=== PATIENT | female | born 1995 | race Hispanic/Latino ===

== ENCOUNTER 2022-12-31 19:30 | Inpatient (IN) | payer BC, OTHER ==
[2022-12-31 20:25] VITALS: BMI 32.1
[2022-12-31] MEDS ORDERED: Fentanyl 100 MCG/2 ML VIAL SLOW IVP PRN (22:38)
[2022-12-31] MEDS ORDERED: Tranexamic Acid 1,000 MG/10 ML VIAL IVP PRN (22:38)
[2022-12-31] MEDS ORDERED: hydrALAZINE 20 MG/ML VIAL SLOW IVP PRN (22:38)
[2022-12-31] MEDS ORDERED: Butorphanol Tartrate 1 MG/ML VIAL SLOW IVP PRN (22:38)
[2022-12-31] MEDS ORDERED: Acetaminophen 500 MG TAB PO PRN (22:38)
[2022-12-31] MEDS ORDERED: Methylergonovine 0.2 MG/ML VIAL IM PRN (22:38)
[2022-12-31] MEDS ORDERED: Carboprost 250 MCG/ML AMP IM PRN (22:38)
[2022-12-31] MEDS ORDERED: HYDROcodone/Acetaminophen 5/325 mg Tablet PO PRN ×2 (22:38)
[2022-12-31] MEDS ORDERED: Misoprostol 200 MCG TAB PR PRN (22:38)
[2022-12-31] MEDS ORDERED: Diphenoxylate HCl/Atropine Tablet PO PRN ×2 (22:38)
[2022-12-31] MEDS ORDERED: Promethazine HCl 25 MG/ML VIAL IM PRN (22:38)
[2022-12-31] MEDS ORDERED: Ondansetron PF 4 MG/2 ML Vial IVP PRN (22:38)
[2022-12-31] MEDS ORDERED: Lidocaine 1% (PF) 30 ML VIAL SC PRN (22:38)
[2022-12-31] MEDS ORDERED: Ibuprofen 800 MG TAB PO PRN (22:38)
[2022-12-31] MEDS ORDERED: NS w/ Oxytocin 30 units 500 ML IV SCH ×3 (22:45)
[2022-12-31 22:58] LABS: Hemoglobin 11.1 g/dL (12.0-15.5); Mean Corpuscular HGB CONC 33.7 g/dL (32.0-36.0); Mean Corpuscular Hemoglobin 29.8 pg (27.0-33.0); Mean Corpuscular Volume 88.2 fl (81.6-98.3); Mean Platelet Volume 12.4 fl (7.4-10.4); Platelet Count 274 10x3/uL (150-450); RBC Distribution Width 12.9 % (11.5-14.5); Red Blood Cell (RBC) Count 3.73 10x6/uL (3.90-5.03); White Blood Cell (WBC) Count 10.6 10x3/uL (3.5-10.5)
[2022-12-31] MEDS: Misoprostol 100 MCG TAB VAG SCH (23:14)
[2022-12-31 23:25] LABS: HBSAg Index 0.13 S/CO (0-0.99); Hep B Surf Ag - L&D Non-Reactive S/CO (NonReactive)
[2022-12-31 23:27] LABS: Syphilis Antibody Nonreactive (Nonreactive); Syphilis Antibody Index 0.03 S/CO (<1.00 Non-Reactive)
[2023-01-01] MEDS ORDERED: Fentanyl 2 mcg/Bup 0.1% Cadd 100 ML ONE (07:45)
[2023-01-01] MEDS ORDERED: NS w/ Oxytocin 30 units 500 ML ONE (07:45)
[2023-01-01] MEDS: Lactated Ringer's 1,000 ML IV SCH ×2 (10:59→11:47)
[2023-01-01] MEDS ORDERED: diphenhydrAMINE 50 MG/ML VIAL IVP PRN ×2 (11:18→23:30)
[2023-01-01] MEDS ORDERED: Ondansetron PF 4 MG/2 ML Vial IVP PRN ×2 (11:18→23:30)
[2023-01-01] MEDS ORDERED: Naloxone HCl 0.4 mg/ml Vial IVP PRN ×4 (11:18→23:30)
[2023-01-01] MEDS ORDERED: Lactated Ringer's 500 ML IV PRN (11:18)
[2023-01-01] MEDS ORDERED: ePHEDrine Sulfate 50 MG/10 ML VIAL SLOW IVP PRN (11:18)
[2023-01-01] MEDS ORDERED: Moisturizing Cream (Eucerin) 113 GM JAR TOP PRN ×2 (11:18→23:30)
[2023-01-01] MEDS ORDERED: Promethazine HCl 25 MG/ML VIAL IM PRN ×2 (11:18→23:30)
[2023-01-01] MEDS ORDERED: Acetaminophen 325 MG TAB PO PRN (11:18)
[2023-01-01] MEDS ORDERED: Fentanyl 2 mcg/Bupivacaine 0.1% Cassette 100 ML EPIDURAL SCH (11:30)
[2023-01-01] MEDS ORDERED: Communication Order-Pharmacy FS SCH ×2 (11:30→23:30)
[2023-01-01] MEDS ORDERED: CEFAZOLIN 2 GM VIAL ONE (21:12)
[2023-01-01] MEDS ORDERED: Azithromycin 500 MG VIAL ONE ×3 (22:21→22:30)
[2023-01-01] MEDS ORDERED: Morphine PF 10 MG/10 ML VIAL ONE (22:31)
[2023-01-01] MEDS ORDERED: PHENYLEPHRINE-NS 100 MCG/ML 10 ML SYRINGE ONE (22:32)
[2023-01-01] MEDS ORDERED: Oxytocin 10 UNITS/ML VIAL ONE (22:32)
[2023-01-01] MEDS ORDERED: Ondansetron PF 4 MG/2 ML Vial ONE (22:32)
[2023-01-01] MEDS ORDERED: Midazolam HCl 2 mg/2 ml Vial ONE (22:56)
[2023-01-01] MEDS ORDERED: Fentanyl 100 MCG/2 ML VIAL ONE (22:56)
[2023-01-01 23:01] LABS: pH (Cord, venous) 7.363 (7.250-7.350)
[2023-01-01] MEDS ORDERED: Ketorolac Tromethamine 30 MG/ML VIAL IVP SCH (23:30)
[2023-01-01] MEDS ORDERED: Promethazine HCl 25 MG SUPP PR PRN (23:30)
[2023-01-01] MEDS ORDERED: Meperidine HCl/PF 25 MG/ML VIAL SLOW IVP PRN (23:30)
[2023-01-01] MEDS ORDERED: Fentanyl 100 MCG/2 ML VIAL SLOW IVP PRN (23:30)
[2023-01-01] MEDS ORDERED: Ketorolac Tromethamine 30 MG/ML VIAL IVP PRN (23:30)
[2023-01-01] MEDS ORDERED: Ondansetron HCl/PF 4 MG/2 ML Vial IVP PRN (23:30)
[2023-01-01] MEDS ORDERED: Naloxone HCl 0.4 mg/ml Vial IV PRN (23:30)
[2023-01-02] MEDS ORDERED: Fentanyl 100 MCG/2 ML VIAL ONE (00:07)
[2023-01-02] MEDS ORDERED: hydrALAZINE 20 MG/ML VIAL SLOW IVP PRN (01:28)
[2023-01-02] MEDS ORDERED: Bisacodyl 10 MG SUPP PR PRN (01:28)
[2023-01-02] MEDS ORDERED: Varicella virus, LIVE 0.5 ML VIAL SC ONE (01:28)
[2023-01-02] MEDS ORDERED: Preparation H Ointment 28 GM TUBE PR PRN (01:28)
[2023-01-02] MEDS ORDERED: Misoprostol 200 MCG TAB VAG PRN (01:28)
[2023-01-02] MEDS ORDERED: Boostrix 0.5 ML (Tdap) VIAL (>/=7 yrs of age) IM ONE (01:28)
[2023-01-02] MEDS ORDERED: Benzocaine-Menthol 82.5 ML CAN TOP PRN (01:28)
[2023-01-02] MEDS ORDERED: Measles/Mumps/Rubella 10 MCG/0.5 ML VIAL SC ONE (01:28)
[2023-01-02] MEDS ORDERED: Ondansetron PF 4 MG/2 ML Vial IVP PRN (01:28)
[2023-01-02] MEDS ORDERED: Promethazine HCl 25 MG/ML VIAL IM PRN (01:28)
[2023-01-02] MEDS ORDERED: Milk Of Magnesia 30 ML UDCUP PO PRN (01:28)
[2023-01-02] MEDS ORDERED: Methylergonovine 0.2 MG/ML VIAL IM PRN (01:28)
[2023-01-02] MEDS ORDERED: NS w/ Oxytocin 30 units 500 ML IV SCH (01:28)
[2023-01-02] MEDS ORDERED: diphenhydrAMINE 25 MG CAP PO PRN (01:28)
[2023-01-02] MEDS ORDERED: Lanolin Ointment 7 GM TUBE TOP PRN (01:28)
[2023-01-02] MEDS ORDERED: Docusate 100 MG CAP PO SCH (01:45)
[2023-01-02] MEDS: Lactated Ringer's 1,000 ML IV SCH (01:58)
[2023-01-02] MEDS: Misoprostol 100 MCG TAB VAG SCH (01:58)
[2023-01-02 05:43] LABS: Hemoglobin 9.7 g/dL (12.0-15.5); Mean Corpuscular HGB CONC 33.6 g/dL (32.0-36.0); Mean Corpuscular Hemoglobin 29.8 pg (27.0-33.0); Mean Corpuscular Volume 88.9 fl (81.6-98.3); Mean Platelet Volume 11.5 fl (7.4-10.4); Platelet Count 221 10x3/uL (150-450); RBC Distribution Width 12.8 % (11.5-14.5); Red Blood Cell (RBC) Count 3.25 10x6/uL (3.90-5.03); White Blood Cell (WBC) Count 19.5 10x3/uL (3.5-10.5)
[2023-01-02] MEDS: Ferrous Sulfate 325 MG TAB PO SCH ×2 (08:34→17:45)
[2023-01-02] MEDS: Docusate 100 MG CAP PO SCH ×2 (08:35→21:33)
[2023-01-02] MEDS: Prenatal Vitamin 1 TAB PO SCH (08:35)
[2023-01-02] MEDS ORDERED: HYDROcodone/Acetaminophen 5/325 mg Tablet PO PRN (11:30)
[2023-01-02] MEDS ORDERED: Zolpidem Tartrate 5 MG TAB PO PRN (11:30)
[2023-01-02] MEDS: HYDROcodone/Acetaminophen 5/325 mg Tablet PO PRN ×2 (12:37→17:47)
[2023-01-02] MEDS ORDERED: Bupivacaine 0.25% HCL 30 ML VIAL ONE (15:00)
[2023-01-02] MEDS ORDERED: Lidocaine 2% MPF 10 ML AMP (For Epidural Use) ONE (15:00)
[2023-01-02] MEDS: Ibuprofen 800 MG TAB PO SCH ×2 (15:11→21:33)
[2023-01-03] MEDS: Ibuprofen 800 MG TAB PO SCH (06:13)
[2023-01-03] MEDS: Docusate 100 MG CAP PO SCH (07:49)
[2023-01-03] MEDS: Ferrous Sulfate 325 MG TAB PO SCH (09:40)
[2023-01-03] MEDS: Prenatal Vitamin 1 TAB PO SCH (09:40)
[2023-01-03 11:25] VITALS: BP 118/69; TEMP 98.4
== END 2023-01-03 12:55 | disposition home or self-care (01) | DRG 788 ==
LOC: CSHLD 19:55 → CSHPED 01-02 01:38
PROVIDERS: ADMIT Obstetrics & Gynecology; ATTEND Obstetrics & Gynecology
PROC: 10D00Z1 Extraction of Products of Conception, Low, Open Approach (ICD-10-PCS; principal; 2023-01-01)
PROC: 4A133R1 Monitoring of Arterial Saturation, Peripheral, Percutaneous Approach (ICD-10-PCS; 2023-01-01)
DX: O32.4XX0 Maternal care for high head at term, not applicable or unspecified (principal); Z37.0 Single live birth; Z3A.39 39 weeks gestation of pregnancy; O76 Abnormality in fetal heart rate and rhythm complicating labor and delivery; O32.8XX0 Maternal care for other malpresentation of fetus, not applicable or unspecified
CPT/HCPCS: 36415; 51702; 82805; 85027; 86780; 86850; 86900; 86901; 87340; 88307; J1200; J1885; J2250; J2274; J2405; J2590; J3010; J7120; S0020